=== PATIENT | female | born 1965 | race Caucasian/White ===

== ENCOUNTER 2025-02-08 01:16 | Outpatient (CLI) | payer OTHER, SELFPAY ==
--- NOTE | 2025-02-08 | DI.RAD_ITS ---
Exam(s) XR HAND LT LIMITED EXAM: XR HAND LT LIMITED CLINICAL HISTORY: DISABILITY DETERMINATION,Z02.71,LT HAND PAIN,STATE SEVERITY OF DEGENERATION. TECHNIQUE: 2D digital imaging was performed of the left hand. Two views were obtained. PA and lateral views were obtained. COMPARISON: No exams were available for comparison FINDINGS: BONES: No acute fracture is present. No bony destructive lesion is seen. JOINTS: No dislocation present. There are mild degenerative changes seen at the 1st CMC joint characterized by joint space narrowing and small osteophytes. There are mild degenerative changes seen at the DIP joint of the index finger. The joint spaces are otherwise well maintained. There are no erosions present. SOFT TISSUE: Normal. IMPRESSION: Mild degenerative changes seen in the left hand. DATA REPOSITORY: RADIATION DOSE DELIVERED:
--- NOTE | 2025-02-08 | DI.RAD_ITS ---
Exam(s) XR HAND RT LIMITED EXAM: XR HAND RT LIMITED CLINICAL HISTORY: DISABILITY DETERMINATION,Z02.71,RT HAND PAIN,STATE SEVERITY OF DEGENERATION. TECHNIQUE: 2D digital imaging was performed of the right hand. Two images were obtained. PA and lateral views were obtained. COMPARISON: No exams were available for comparison FINDINGS: BONES: No acute fracture is present. No bony destructive lesion is seen. JOINTS: No dislocation present. The joint spaces are well maintained. There is no joint space narrowing or erosion present. No osteophytes are seen. SOFT TISSUE: No suspicious soft tissue calcifications are present. IMPRESSION: Unremarkable right hand. DATA REPOSITORY: RADIATION DOSE DELIVERED:
== END 2025-02-08 01:36 ==
LOC: DI 01:16
PROVIDERS: Visit Provider Pediatrics Pediatric Rheumatology
DX: Z02.71 Encounter for disability determination (principal); M79.642 Pain in left hand; M79.641 Pain in right hand
CPT/HCPCS: 73120